=== PATIENT | male | born 1945 | race Caucasian/White ===

== ENCOUNTER 2022-06-16 05:15 | Inpatient (IN) | payer MEDICARE ==
[2022-06-16 06:21] LABS: #Lymphocytes 0.8 thou/uL (1.20-3.40); #Monocytes 0.4 thou/uL (0.11-0.59); #Neutrophils 8.3 thou/uL (1.40-6.50); %Basophils 0.3 % (0.0-1.0); %Eosinophils 0.4 % (0.0-10.0); %Lymphocytes 8.4 % (21.0-51.0); %Monocytes 4.5 % (0.0-10.0); %Neutrophils 86.4 % (42.0-75.0); Mean Corpuscular HGB CONC 34.1 g/dL (32.0-36.0); Mean Corpuscular Hemoglobin 32.7 pg (27.0-31.0); Mean Corpuscular Volume 95.7 fl (78.0-98.0); Mean Platelet Volume 9.2 fL (7.4-10.4); Platelet Count 135 10x3/uL (130-400); RBC Distribution Width 11.5 % (11.5-14.5); Red Blood Cell (RBC) Count 3.98 mill/uL (4.70-6.10); White Blood Cell (WBC) Count 9.6 10x3/uL (4.8-10.8)
[2022-06-16 06:46] LABS: ALT (SGPT) 14 U/L (8-55); AST (SGOT) 21 U/L (5-34); Acetaminophen Less than 10.0 mcg/mL (10.0-30.0); Albumin 3.6 g/dL (3.4-4.8); Alcohol Less than 10 mg/dL (Less than 10); Alkaline Phosphatase 37 U/L (40-110); Anion Gap 20 mmol/L (10-20); BUN (Urea Nitrogen) 11 mg/dL (8.4-25.7); Bilirubin, Total 0.8 mg/dL (0.2-1.2); CK (CPK) 105 U/L (30-200); Calcium 9.1 mg/dL (7.8-10.44); Carbon Dioxide 21 mmol/L (23-31); Chloride 103 mmol/L (98-107); Globulin 2.1 g/dL (2.4-3.5); Glucose 90 mg/dL (83-110); Potassium 4.2 mmol/L (3.5-5.1); Protein, Total 5.7 g/dL (5.8-8.1); Salicylate Less than 8.0 mg/dL (15.0-30.0); Sodium 140 mmol/L (136-145)
[2022-06-16 07:11] LABS: Calc. Creatinine Clearance 0 mL/min (70-130); Estimated GFR 68
[2022-06-16 08:56] LABS: Bilirubin Negative (Negative); Blood, Urine Negative (Negative); Clarity Clear (Clear); Glucose, Urine (Dipstick) Normal (Negative); Ketone, Urine 80 mg/dL (Negative); Leukocyte Negative Leu/uL (Negative); Nitrite Negative (Negative); Protein, Urine (Dipstick) Negative (Neg-Trace); Specific Gravity, Urine 1.012 (1.002-1.036); Urobilinogen Normal mg/dL (Less than 2); pH, Urine 5.5 (5.0-9.0)
[2022-06-16 09:05] LABS: Amphetamine Not Detected (NotDetected); Barbiturates Screen Not Detected (NotDetected); Benzodiazepine Screen Not Detected (NotDetected); Cocaine Metabolite Screen Not Detected (NotDetected); Methadone Not Detected (NotDetected); Methamphetamine Not Detected (NotDetected); Opiate Screen Not Detected (NotDetected); Oxycodone Screen Not Detected (NotDetected); Phencyclidine (PCP) Not Detected (NotDetected); THC/Cannabinoid Screen Not Detected (NotDetected); Tricyclic Screen Not Detected (NotDetected)
[2022-06-16] MEDS ORDERED: Ondansetron PF 4 MG/2 ML Vial IVP PRN (09:29)
[2022-06-16] MEDS ORDERED: HYDROcodone/Acetaminophen 5/325 mg Tablet PO PRN (09:29)
[2022-06-16] MEDS ORDERED: Acetaminophen 650 MG Suppository PR PRN (09:29)
[2022-06-16 09:59] LABS: Hemoglobin A1c 5.2 % (4.0-6.0)
[2022-06-16] MEDS ORDERED: Aspirin 81 mg Enteric Coated Tablet PO SCH (10:45)
[2022-06-16 10:49] LABS: Magnesium 1.9 mg/dL (1.6-2.6); Phosphorus 2.6 mg/dL (2.3-4.7)
[2022-06-16] MEDS ORDERED: Iopamidol 370 76% 100 ML VIAL ONE (11:05)
[2022-06-16 11:08] LABS: Vitamin D, 25 Hydroxy 29.1 ng/ml (> 30.0)
[2022-06-16] MEDS ORDERED: Aspirin 81 mg Enteric Coated Tablet ONE (11:23)
[2022-06-16] MEDS ORDERED: Magnesium Oxide 400 MG TAB PO SCH (13:00)
[2022-06-16 13:18] VITALS: BMI 20.1
[2022-06-16] MEDS ORDERED: Acetaminophen 325 MG TAB PO PRN (19:49)
[2022-06-16] MEDS: Tamsulosin HCl 0.4 MG CAP PO SCH (20:07)
[2022-06-17 05:44] LABS: #Lymphocytes 1.5 thou/uL (1.20-3.40); #Monocytes 0.7 thou/uL (0.11-0.59); #Neutrophils 5.1 thou/uL (1.40-6.50); %Basophils 0.3 % (0.0-1.0); %Eosinophils 0.5 % (0.0-10.0); %Lymphocytes 20.8 % (21.0-51.0); %Monocytes 8.8 % (0.0-10.0); %Neutrophils 69.6 % (42.0-75.0); Mean Corpuscular HGB CONC 33.9 g/dL (32.0-36.0); Mean Corpuscular Hemoglobin 32.5 pg (27.0-31.0); Mean Corpuscular Volume 95.7 fl (78.0-98.0); Mean Platelet Volume 9.5 fL (7.4-10.4); Platelet Count 120 10x3/uL (130-400); RBC Distribution Width 11.8 % (11.5-14.5); White Blood Cell (WBC) Count 7.4 10x3/uL (4.8-10.8)
[2022-06-17 06:19] LABS: ALT (SGPT) 13 U/L (8-55); AST (SGOT) 21 U/L (5-34); Albumin 3.2 g/dL (3.4-4.8); Alkaline Phosphatase 33 U/L (40-110); Anion Gap 14 mmol/L (10-20); BUN (Urea Nitrogen) 9 mg/dL (8.4-25.7); Bilirubin, Total 0.6 mg/dL (0.2-1.2); Calc. Creatinine Clearance 46 mL/min (70-130); Calcium 8.9 mg/dL (7.8-10.44); Carbon Dioxide 22 mmol/L (23-31); Chloride 109 mmol/L (98-107); Cholesterol 65 mg/dl (< 200 Desired); Estimated GFR 63; Globulin 1.9 g/dL (2.4-3.5); Glucose 88 mg/dL (83-110); HDL Cholesterol 32 mg/dL (>60 Neg Risk); LDL Cholesterol, Calculated 25 mg/dL; Protein, Total 5.1 g/dL (5.8-8.1); Sodium 141 mmol/L (136-145); Triglycerides 38 mg/dL (Less than 150)
[2022-06-17] MEDS: Aspirin 81 mg Enteric Coated Tablet PO SCH (08:44)
[2022-06-17] MEDS: Magnesium Oxide 400 MG TAB PO SCH (08:44)
[2022-06-17] MEDS: Tamsulosin HCl 0.4 MG CAP PO SCH (19:41)
[2022-06-18 05:38] LABS: #Eosinphils 0.1 thou/uL (0.0-0.7); #Lymphocytes 1.6 thou/uL (1.20-3.40); #Monocytes 0.7 thou/uL (0.11-0.59); #Neutrophils 3.8 thou/uL (1.40-6.50); %Basophils 0.5 % (0.0-1.0); %Eosinophils 2.1 % (0.0-10.0); %Lymphocytes 25.3 % (21.0-51.0); %Monocytes 11.8 % (0.0-10.0); %Neutrophils 60.3 % (42.0-75.0); Mean Corpuscular HGB CONC 34.7 g/dL (32.0-36.0); Mean Corpuscular Hemoglobin 33.5 pg (27.0-31.0); Mean Corpuscular Volume 96.5 fl (78.0-98.0); Mean Platelet Volume 9.2 fL (7.4-10.4); Platelet Count 116 10x3/uL (130-400); RBC Distribution Width 11.7 % (11.5-14.5); Red Blood Cell (RBC) Count 3.57 mill/uL (4.70-6.10); White Blood Cell (WBC) Count 6.3 10x3/uL (4.8-10.8)
[2022-06-18 05:48] LABS: Anion Gap 13 mmol/L (10-20); BUN (Urea Nitrogen) 7 mg/dL (8.4-25.7); Calc. Creatinine Clearance 55 mL/min (70-130); Calcium 9.1 mg/dL (7.8-10.44); Carbon Dioxide 25 mmol/L (23-31); Chloride 109 mmol/L (98-107); Estimated GFR 78; Glucose 108 mg/dL (83-110); Potassium 3.6 mmol/L (3.5-5.1); Sodium 143 mmol/L (136-145)
[2022-06-18] MEDS: Aspirin 81 mg Enteric Coated Tablet PO SCH (09:47)
[2022-06-18] MEDS: Magnesium Oxide 400 MG TAB PO SCH (09:47)
[2022-06-18] MEDS: Sodium Chloride 0.9% 1,000 ML IV SCH ×2 (12:59→21:56)
[2022-06-18] MEDS ORDERED: Thiamine HCl 200 MG/2 ML VIAL SLOW IVP SCH (13:00)
[2022-06-18] MEDS: Tamsulosin HCl 0.4 MG CAP PO SCH (20:20)
[2022-06-19] MEDS: Sodium Chloride 0.9% 1,000 ML IV SCH (05:06)
[2022-06-19 05:07] LABS: #Eosinphils 0.3 thou/uL (0.0-0.7); #Lymphocytes 1.6 thou/uL (1.20-3.40); #Monocytes 0.6 thou/uL (0.11-0.59); #Neutrophils 4.2 thou/uL (1.40-6.50); %Basophils 0.5 % (0.0-1.0); %Eosinophils 3.8 % (0.0-10.0); %Lymphocytes 24.2 % (21.0-51.0); %Monocytes 8.5 % (0.0-10.0); %Neutrophils 62.9 % (42.0-75.0); Hemoglobin 11.6 g/dL (14.0-18.0); Mean Corpuscular HGB CONC 34.3 g/dL (32.0-36.0); Mean Corpuscular Hemoglobin 33.2 pg (27.0-31.0); Mean Corpuscular Volume 96.8 fl (78.0-98.0); Mean Platelet Volume 9.3 fL (7.4-10.4); Platelet Count 107 10x3/uL (130-400); RBC Distribution Width 11.9 % (11.5-14.5); White Blood Cell (WBC) Count 6.7 10x3/uL (4.8-10.8)
[2022-06-19 05:31] LABS: Anion Gap 10 mmol/L (10-20); BUN (Urea Nitrogen) 10 mg/dL (8.4-25.7); Calc. Creatinine Clearance 61 mL/min (70-130); Calcium 8.9 mg/dL (7.8-10.44); Carbon Dioxide 25 mmol/L (23-31); Chloride 112 mmol/L (98-107); Estimated GFR 87; Glucose 97 mg/dL (83-110); Potassium 3.7 mmol/L (3.5-5.1); Sodium 143 mmol/L (136-145)
[2022-06-19 08:11] VITALS: TEMP 98.7
[2022-06-19] MEDS: Magnesium Oxide 400 MG TAB PO SCH (08:56)
[2022-06-19 09:15] VITALS: BP 105/59
== END 2022-06-19 11:34 | disposition home or self-care (01) | DRG 158 ==
LOC: ERS 05:15 → ERHOLD 09:14 → 2SW 13:07 → OBSVTOIN 17:22
PROVIDERS: ADMIT Family Medicine; ATTEND Family Medicine
DX: S02.40DA Maxillary fracture, left side, initial encounter for closed fracture (principal); E87.29 Other acidosis; S02.32XA Fracture of orbital floor, left side, initial encounter for closed fracture; S02.40FA Zygomatic fracture, left side, initial encounter for closed fracture; I95.1 Orthostatic hypotension; T73.0XXA Starvation, initial encounter; W18.30XA Fall on same level, unspecified, initial encounter; I48.0 Paroxysmal atrial fibrillation; N40.0 Benign prostatic hyperplasia without lower urinary tract symptoms; E78.00 Pure hypercholesterolemia, unspecified; I25.10 Atherosclerotic heart disease of native coronary artery without angina pectoris; N28.89 Other specified disorders of kidney and ureter; N40.1 Benign prostatic hyperplasia with lower urinary tract symptoms; R33.8 Other retention of urine; Z79.899 Other long term (current) drug therapy
CPT/HCPCS: 36415; 70450; 70487; 70551; 71045; 71275; 72125; 74176; 80048; 80053; 80061; 80306; 80307; 81003; 82010; 82140; 82180; 82306; 82550; 82607; 83036; 83690; 83735; 84100; 84207; 84425; 84443; 84446; 84484; 84590; 84597; 85025; 85379; 93005; 93306; 93880; 95816; 95819; 95957; 96360; 96374; G0378; J3411; J7050; Q9967

== ENCOUNTER 2022-09-08 12:51 | Outpatient (CLI) | payer MEDICARE | END 2022-09-08 12:52 | disposition home or self-care (01) | LOC: CT 12:51 | PROVIDERS: ATTEND Neurological Surgery | DX: I62.03 Nontraumatic chronic subdural hemorrhage (principal); G93.9 Disorder of brain, unspecified | CPT/HCPCS: 70450 ==

== ENCOUNTER 2022-10-08 11:14 | Emergency (ER) | payer MEDICARE ==
[2022-10-08 11:50] LABS: #Basophils 0.1 thou/uL (0.0-0.2); #Eosinphils 0.1 thou/uL (0.0-0.7); #Monocytes 0.5 thou/uL (0.11-0.59); #Neutrophils 8.1 thou/uL (1.40-6.50); %Basophils 0.5 % (0.0-1.0); %Eosinophils 0.6 % (0.0-10.0); %Lymphocytes 10.1 % (21.0-51.0); %Monocytes 5.3 % (0.0-10.0); %Neutrophils 83.3 % (42.0-75.0); Hematocrit 39.6 % (42.0-52.0); Hemoglobin 13.1 g/dL (14.0-18.0); Mean Corpuscular HGB CONC 33.1 g/dL (32.0-36.0); Mean Corpuscular Hemoglobin 31.5 pg (27.0-31.0); Mean Corpuscular Volume 95.2 fl (78.0-98.0); Mean Platelet Volume 9.7 fL (7.4-10.4); Platelet Count 205 10x3/uL (130-400); RBC Distribution Width 12.2 % (11.5-14.5); Red Blood Cell (RBC) Count 4.16 mill/uL (4.70-6.10); White Blood Cell (WBC) Count 9.7 10x3/uL (4.8-10.8)
[2022-10-08 12:07] LABS: INR-International Normal Ratio 1.1; Prothrombin Time 14.5 sec (12.0-14.7)
[2022-10-08 12:08] LABS: PTT 24.9 sec (22.9-36.1)
[2022-10-08 12:15] LABS: ALT (SGPT) 11 U/L (8-55); AST (SGOT) 16 U/L (5-34); Alkaline Phosphatase 48 U/L (40-110); Anion Gap 13 mmol/L (10-20); BUN (Urea Nitrogen) 15 mg/dL (8.4-25.7); Bilirubin, Total 0.7 mg/dL (0.2-1.2); Calc. Creatinine Clearance 0 mL/min (70-130); Calcium 9.1 mg/dL (7.8-10.44); Carbon Dioxide 23 mmol/L (23-31); Chloride 109 mmol/L (98-107); Estimated GFR 65; Globulin 2.7 g/dL (2.4-3.5); Glucose 100 mg/dL (83-110); Potassium 4.2 mmol/L (3.5-5.1); Protein, Total 6.7 g/dL (5.8-8.1); Sodium 141 mmol/L (136-145)
== END 2022-10-08 13:49 | disposition home or self-care (01) ==
LOC: ERS 11:14
DX: S06.5XAA Traumatic subdural hemorrhage with loss of consciousness status unknown, initial encounter (principal); E78.00 Pure hypercholesterolemia, unspecified; W19.XXXA Unspecified fall, initial encounter
CPT/HCPCS: 70450; 80053; 84484; 85025; 85610; 85730; 93005; 96360